=== PATIENT | female | born 1995 | race Hispanic/Latino ===

== ENCOUNTER 2017-08-19 11:21 | Inpatient (IN) | payer MEDICAID ==
[~2017-08-19] VITALS: Ht 154.9 cm; Wt 78.0 kg
[2017-08-19] MEDS ORDERED: LACTATED RINGERS 1000ML 1,000 ML IV PRN (11:44)
[2017-08-19] MEDS ORDERED: DINOPROSTONE 10 MG VAGINAL SUPP VG SCH (11:45)
[2017-08-19 12:25] LABS: APPEARANCE,URINE CLOUDY (CLEAR); BILIRUBIN,URINE NEGATIVE (NEGATIVE); COLOR,URINE YELLOW (YELLOW); GLUCOSE, URINE (UA) NEGATIVE (NEGATIVE); KETONES,URINE 5 mg/dL (NEGATIVE); LEUKOCYTE ESTERASE ,URINE MODERATE (NEGATIVE); NITRATE,URINE NEGATIVE (NEGATIVE); OCCULT BLOOD,URINE TRACE-INTACT (NEGATIVE); PH,URINE 6.5 (5.0-8.0); PROTEIN,URINE 100 (NEGATIVE)
[2017-08-19 12:28] LABS: HEMATOCRIT 29.3 % (36-48); MEAN CORPUSCULAR HEMOGLOBIN 28.7 pg (27.0-33.0); MEAN CORPUSCULAR HGB CONC 34.9 g/dL (32.0-36.0); MEAN CORPUSCULAR VOLUME 82.1 fL (79-99); NUCLEATED RED BLOOD CELLS 0.1 % (0.0-0.19); PLATELET COUNT (AUTO) 237 K/uL (130-400); RED BLOOD CELL COUNT(AUTO) 3.57 MIL/uL (4.00-5.50); RED CELL DISTRIBUTION WIDTH 14.5 % (11.0-15.5); WHITE BLOOD COUNT (AUTO) 9.6 K/uL (4.8-10.8)
[2017-08-19 12:35] LABS: BACTERIA,URINE Moderate /HPF (None Seen); RBC,URINE 0-1 /HPF (0-1); SQUAMOUS EPITHELIAL CELL,UR Many /HPF (0-2); WBC,URINE 51-100 /HPF (0-1)
[2017-08-19 12:36] LABS: MUCUS,URINE Few LPF (None Seen)
[2017-08-19 12:36] LABS: CREATININE 0.6 mg/dL (0.5-1.5); POTASSIUM 4.1 mmol/L (3.5-5.1)
[2017-08-19 12:40] LABS: ALBUMIN 2.5 g/dL (3.5-5.0); BILIRUBIN,TOTAL 0.3 mg/dL (0.2-1.0); TOTAL PROTEIN, SERUM 6.4 g/dL (6.0-8.3); URIC ACID 4.1 mg/dL (2.6-7.2)
[2017-08-19 12:46] LABS: INR 0.91 (0.85-1.15); PARTIAL THROMBOPLASTIN TIME 27.8 SEC (26.3-35.5); PROTHROMBIN TIME 9.6 SEC (9.6-11.6)
[2017-08-19] MEDS ORDERED: DINOPROSTONE 10 MG VAGINAL SUPP ONE (13:07)
[2017-08-20] MEDS ORDERED: OXYTOCIN 10 USP UNITS/ML ONE ×2 (01:42→14:13)
[2017-08-20] MEDS ORDERED: LACTATED RINGERS 1000ML 1,000 ML IV ONE (01:42)
[2017-08-20] MEDS ORDERED: OXYTOCIN 10 USP UNITS/ML 20 UNIT in LACTATED RINGERS 1000ML 1,000 ML IV SCH (03:00)
[2017-08-20] MEDS ORDERED: MEPERIDINE-PF 50 MG/ML SYG IVP SCH (06:45)
[2017-08-20] MEDS ORDERED: PROMETHAZINE HCL 25 MG/ML 1ML AMPULE IM SCH ×2 (06:45→10:15)
[2017-08-20 07:00] LABS: BASOPHILS % (AUTO) 0.4 % (0.0-5.0); EOSINOPHILS % (AUTO) 0.5 % (0.0-8.0); HEMATOCRIT 30.3 % (36-48); LYMPHOCYTES % (AUTO) 17.9 % (21.0-51.0); MEAN CORPUSCULAR HGB CONC 33.4 g/dL (32.0-36.0); MEAN CORPUSCULAR VOLUME 81.1 fL (79-99); MONOCYTES % (AUTO) 5.1 % (3.0-13.0); NEUTROPHILS % (AUTO) 76.1 % (40.0-77.0); NUCLEATED RED BLOOD CELLS 0.1 % (0.0-0.19); PLATELET COUNT (AUTO) 225 K/uL (130-400); RED BLOOD CELL COUNT(AUTO) 3.73 MIL/uL (4.00-5.50); RED CELL DISTRIBUTION WIDTH 14.9 % (11.0-15.5); WHITE BLOOD COUNT (AUTO) 13.3 K/uL (4.8-10.8)
[2017-08-20 07:10] LABS: CREATININE 0.6 mg/dL (0.5-1.5)
[2017-08-20 07:15] LABS: ALBUMIN 2.5 g/dL (3.5-5.0); BILIRUBIN,TOTAL 0.5 mg/dL (0.2-1.0); URIC ACID 4.1 mg/dL (2.6-7.2)
[2017-08-20 07:39] LABS: INR 0.9 (0.85-1.15); PROTHROMBIN TIME 9.3 SEC (9.6-11.6)
[2017-08-20] MEDS ORDERED: LACTATED RINGERS 500 ML 500 ML IV PRN (09:30)
[2017-08-20] MEDS ORDERED: NALOXONE HCL 0.4 MG/1 ML ML IV PRN (09:30)
[2017-08-20] MEDS ORDERED: EPHEDRINE SULFATE 50 MG/ML AMPULE IVP PRN (09:30)
[2017-08-20] MEDS ORDERED: MEPERIDINE-PF 25 MG/ML SYG ONE (10:09)
[2017-08-20] MEDS ORDERED: MEPERIDINE-PF 25 MG/ML SYG IVP SCH (10:15)
[2017-08-20 10:22] LABS: HEPATITIS Bs ANTIGEN SCREEN P Negative (Negative)
[2017-08-20] MEDS ORDERED: MAGNESIUM SULFATE 1,000 ML IV ONE (12:30)
[2017-08-20] MEDS ORDERED: MAGNESIUM SULFATE 1,000 ML IV PRN ×2 (12:31→15:21)
[2017-08-20] MEDS ORDERED: MAGNESIUM 4GM PREMIX 100ML 100 ML IV PRN ×2 (12:45→15:30)
[2017-08-20] MEDS ORDERED: LACTATED RINGERS 1000ML 1,000 ML IV SCH ×2 (12:45→15:21)
[2017-08-20] MEDS ORDERED: CALCIUM GLUCONATE 1 GM/10 ML VIAL IVP PRN ×2 (12:45→15:30)
[2017-08-20] MEDS ORDERED: LIDOCAINE HCL 1% 20 ML VIAL ONE (12:59)
[2017-08-20] MEDS ORDERED: DIPH,PERTUSS(ACELL),TET VAC/PF 0.5 ML VIAL IM PRN (15:30)
[2017-08-20] MEDS ORDERED: MEASLES/MUMPS/RUBELLA VACCINE, LIVE 0.5 ML/VIAL SQ PRN (15:30)
[2017-08-20] MEDS ORDERED: OXYTOCIN 10 USP UNITS/ML IV PRN (15:30)
[2017-08-20] MEDS ORDERED: LANOLIN 30GM OINTMENT TP PRN (15:30)
[2017-08-20] MEDS ORDERED: ACETAMINOPHEN 325 MG TAB PO PRN (15:30)
[2017-08-20] MEDS: IBUPROFEN 800 MG TAB PO PRN (16:17)
[2017-08-20 17:41] LABS: HEMATOCRIT 21.8 % (36-48)
[2017-08-20] MEDS ORDERED: DIPHENHYDRAMINE HCL 25 MG CAPSULE PO SCH ×2 (18:00→18:15)
[2017-08-20] MEDS ORDERED: ACETAMINOPHEN 325 MG TAB PO SCH (18:00)
[2017-08-20] MEDS ORDERED: DIPHENHYDRAMINE HCL 25 MG CAPSULE ONE (21:21)
[2017-08-20] MEDS: DOCUSATE SODIUM 100 MG CAP PO SCH (21:24)
[2017-08-21] MEDS: IBUPROFEN 800 MG TAB PO PRN ×3 (05:13→20:31)
[2017-08-21 07:11] LABS: HEMATOCRIT 22.2 % (36-48); MEAN CORPUSCULAR HEMOGLOBIN 29.7 pg (27.0-33.0); MEAN CORPUSCULAR HGB CONC 35.7 g/dL (32.0-36.0); MEAN CORPUSCULAR VOLUME 83.4 fL (79-99); PLATELET COUNT (AUTO) 199 K/uL (130-400); RED BLOOD CELL COUNT(AUTO) 2.66 MIL/uL (4.00-5.50); RED CELL DISTRIBUTION WIDTH 14.7 % (11.0-15.5); WHITE BLOOD COUNT (AUTO) 15.1 K/uL (4.8-10.8)
[2017-08-21 11:34] VITALS: BP 133/85
[2017-08-21] MEDS ORDERED: BENZOCAINE/LANOLIN/ALOE VERA 60 ML AEROSOL TP PRN (12:30)
[2017-08-21] MEDS: DOCUSATE SODIUM 100 MG CAP PO SCH ×2 (12:30→20:31)
[2017-08-21] MEDS ORDERED: WITCH HAZEL 1 PAD TP PRN (12:30)
[2017-08-21 16:10] VITALS: BP 136/75
[2017-08-21] MEDS ORDERED: DIPH,PERTUSS(ACELL),TET VAC/PF 0.5 ML VIAL IM SCH (18:15)
[2017-08-21] MEDS ORDERED: DIPH,PERTUSS(ACELL),TET VAC/PF 0.5 ML VIAL IM ONE (18:30)
[2017-08-21 19:19] VITALS: BP 144/88
[2017-08-22 00:14] VITALS: BP 152/89
[2017-08-22 03:06] VITALS: BP 132/78
[2017-08-22 05:28] LABS: BASOPHILS % (AUTO) 0.4 % (0.0-5.0); EOSINOPHILS % (AUTO) 0.9 % (0.0-8.0); HEMATOCRIT 28.6 % (36-48); LYMPHOCYTES % (AUTO) 15.7 % (21.0-51.0); MEAN CORPUSCULAR HEMOGLOBIN 28.1 pg (27.0-33.0); MEAN CORPUSCULAR HGB CONC 33.8 g/dL (32.0-36.0); MEAN CORPUSCULAR VOLUME 83.1 fL (79-99); MONOCYTES % (AUTO) 6.2 % (3.0-13.0); NEUTROPHILS % (AUTO) 76.8 % (40.0-77.0); PLATELET COUNT (AUTO) 211 K/uL (130-400); RED BLOOD CELL COUNT(AUTO) 3.44 MIL/uL (4.00-5.50); RED CELL DISTRIBUTION WIDTH 16.1 % (11.0-15.5); WHITE BLOOD COUNT (AUTO) 15.8 K/uL (4.8-10.8)
[2017-08-22] MEDS: DOCUSATE SODIUM 100 MG CAP PO SCH (07:34)
[2017-08-22] MEDS: IBUPROFEN 800 MG TAB PO PRN (07:35)
[2017-08-22 08:18] VITALS: BP 145/92
[2017-08-22 11:50] VITALS: BP 132/78
== END 2017-08-22 15:30 | disposition home or self-care (01) | DRG 560 ==
LOC: LDH 11:21 → WSH 08-21 10:45 → EDSTATUS 08-29 11:20
PROVIDERS: ADMIT Obstetrics & Gynecology; ATTEND Obstetrics & Gynecology
PROC: 10E0XZZ Delivery of Products of Conception, External Approach (ICD-10-PCS; principal; 2017-08-20)
PROC: 3E0R3BZ Introduction of Anesthetic Agent into Spinal Canal, Percutaneous Approach (ICD-10-PCS; 2017-08-20)
PROC: 00HU33Z Insertion of Infusion Device into Spinal Canal, Percutaneous Approach (ICD-10-PCS; 2017-08-20)
PROC: 0W8NXZZ Division of Female Perineum, External Approach (ICD-10-PCS; 2017-08-20)
PROC: 10907ZC Drainage of Amniotic Fluid, Therapeutic from Products of Conception, Via Natural or Artificial Opening (ICD-10-PCS; 2017-08-20)
PROC: 3E033VJ Introduction of Other Hormone into Peripheral Vein, Percutaneous Approach (ICD-10-PCS; 2017-08-20)
PROC: 3E0P7VZ Introduction of Hormone into Female Reproductive, Via Natural or Artificial Opening (ICD-10-PCS; 2017-08-20)
PROC: 30233N1 Transfusion of Nonautologous Red Blood Cells into Peripheral Vein, Percutaneous Approach (ICD-10-PCS; 2017-08-20)
PROC: 3E0234Z Introduction of Serum, Toxoid and Vaccine into Muscle, Percutaneous Approach (ICD-10-PCS; 2017-08-21)
DX: O13.4 Gestational [pregnancy-induced] hypertension without significant proteinuria, complicating childbirth (principal); O14.04 Mild to moderate pre-eclampsia, complicating childbirth; O69.2XX0 Labor and delivery complicated by other cord entanglement, with compression, not applicable or unspecified; Z37.0 Single live birth; Z3A.38 38 weeks gestation of pregnancy; Z23 Encounter for immunization
CPT/HCPCS: 36415; 80053; 81001; 83735; 84550; 85014; 85018; 85025; 85027; 85384; 85610; 85730; 86592; 86850; 86900; 86901; 86922; 87340; 90715; A4606; J2175; J2550; J2590; J3475; J7120; P9016; Q0163